=== PATIENT | male | born 1990 | race Caucasian/White ===

== ENCOUNTER 2016-04-01 18:58 | Emergency (ER) ==
[2016-04-01 19:05] VITALS: BP 134/74; TEMP 99.2; BMI 28.0
--- NOTE | 2016-04-01 19:30 | ED.PDOC ---
General ED Provider: Dr. VIRGIE GALLEGOS Chief Complaint: Tooth Problem Stated Complaint: Patient is a 25 year old male who comes to the ER with Complaints of right dental pain for 4 days. States he broke the right lower premolar and now has severe pain. The pain was not relieved with Motrin and Tylenol. States has an Apt with dentist next 2 week. Time Seen by Physician: 19:29 Mode of Arrival: Walk-In Information Source: Patient Nursing and Triage Documentation Reviewed and Agree: Yes EENT Complaint Exam - Dental/Oral Complaint/Exam Mechanism of Injury: No known trauma Onset/Duration: 4 days Symptoms Are: Still present Timing: Constant Initial Severity: Moderate Current Severity: Severe Location: Right Lower molar Character: Reports: Dull, Aching, Throbbing Aggravating: Reports: Heat, Cold, Chewing, Exertion Associated Signs and Symptoms: Reports: Swelling Related History: Denies: Similar episode Cardiac Risk Factors: Reports: None Dental/Oral Surgical History: Reports: None Tooth Findings: Present: Dental fracture Cervical Lymphadenopathy Present: No Facial Swelling Present: No Bleeding Present: No Oropharynx Findings: Absent: Clots, Active bleeding Septal Hematoma: No Foreign Body Present: No Dysphagia Present: No Drooling Present: No Asymmetrical Tonsillar Swelling Present: No Uvula Midline: No Carol-tonsillar Fluctuence: No Trismus Present: No Palatal Petechiae Present: No Scarlatinaform Rash Present: No Lesions: Absent: Lip, Gums, Tongue, Buccal Mucosa, Pharynx Exanthem: Absent: Lip, Gums, Tongue, Buccal Mucosa, Pharynx Vesicles: Absent: Lip, Gums, Tongue, Buccal Mucosa, Pharynx Teeth Picture: 1 - fractured tooth with some decay Differential Diagnoses: Dental Caries, Fractured Tooth Review of Systems - Review Of Systems Constitutional: Reports: No symptoms Eyes: Reports: No symptoms Ears, Nose, Mouth, Throat: Reports: Mouth pain Respiratory: Reports: No symptoms Cardiac: Reports: No symptoms GI: Reports: No symptoms : Reports: No symptoms Musculoskeletal: Reports: No symptoms Skin: Reports: No symptoms Neurological: Reports: No symptoms Endocrine: Reports: No symptoms Hematologic/Lymphatic: Reports: No symptoms All Other Systems: Reviewed and Negative Past Medical History - Past Medical History Previously Healthy: Yes Endocrine: Reports: None Cardiovascular: Reports: None Respiratory: Reports: None Hematological: Reports: None Gastrointestinal: Reports: None Genitourinary: Reports: Kidney stones Neuro/Psych: Reports: Anxiety, Depression Musculoskeletal: Reports: None Cancer: Reports: None Other Pertinent Past Medical History: Tachycardia - Surgical History General Surgical History: Reports: None - Family History Family History: Reports: None - Social History Smoking Status: Never smoker Hx Substance Use: No Alcohol Screening: None - Immunizations Tetanus Shot up to Date: Yes Physical Exam - Physical Exam Appearance: Ill-appearing Ill-appearing: Mild Pain Distress: Severe Eyes: CARA, EOMI, Conjunctiva clear ENT: Ears normal, Nose normal, Oropharynx normal Neck: Supple Respiratory: Airway patent, Breath sounds clear, Breath sounds equal, Respirations nonlabored Cardiovascular: RRR, Pulses normal, No rub, No murmur GI/: Soft, Nontender, No masses, Bowel sounds normal, No Organomegaly Musculoskeletal: Normal strength, ROM intact, No edema, No calf tenderness Skin: Warm, Dry, Normal color Neurological: Sensation intact Critical Care Note - Critical Care Note Total Time (mins): 0 Course - Course Vital Signs: Temp Pulse Resp BP Pulse Ox 04/01/16 19:00 99.2 F 70 20 134/74 98 Departure - Departure Time of Disposition: 20:10 Disposition: HOME SELF-CARE Discharge Problem: Toothache, Dental decay Instructions: Dental Caries (ED) Condition: Fair Pt referred to PMD for follow-up: Yes Additional Instructions: Follow up with Your dentist as scheduled. Take medications as prescribed Prescriptions: Hydrocodone/Acetaminophen [[place] 5-325 Tablet] 1 tab PO Q6HR PRN #12 tablet PRN Reason: PAIN Amoxicillin [Amoxil] 500 mg PO TID #30 capsule Allergies/Adverse Reactions: Allergies No Known Allergies Allergy (Unverified 04/01/16 19:37) Home Medications: Ambulatory Orders Amoxicillin [Amoxil] 500 mg PO TID #30 capsule 04/01/16 Hydrocodone/Acetaminophen [[place] 5-325 Tablet] 1 tab PO Q6HR PRN #12 tablet 08/11 Disposition Discussed With: Patient
[2016-04-01] MEDS ORDERED: AMOXIL PO STA (19:35)
[2016-04-01] MEDS ORDERED: DEMEROL 50 MG/ML SYRINGE IM STA (19:35)
[2016-04-01] MEDS ORDERED: PHENERGAN 25 MG/ML VIAL 25 MG in SODIUM CHLORIDE 50 ML IV STA (19:35)
[2016-04-01] MEDS ORDERED: PHENERGAN 25 MG/ML VIAL 25 MG in SODIUM CHLORIDE 50 ML IM STA (19:39)
[2016-04-01] MEDS ORDERED: PHENERGAN 25 MG/ML VIAL IM STA (19:39)
[2016-04-01] MEDS ORDERED: PHENERGAN 25 MG/ML VIAL ONE (19:40)
== END 2016-04-01 20:19 | disposition home or self-care (01) ==
LOC: ED 18:58
DX: K08.89 Other specified disorders of teeth and supporting structures (principal); K02.7 Dental root caries; S02.5XXA Fracture of tooth (traumatic), initial encounter for closed fracture
CPT/HCPCS: 96372; 99282

== ENCOUNTER 2016-09-10 20:22 | Emergency (ER) ==
[2016-09-10 20:25] VITALS: BP 128/74; TEMP 98.9
[2016-09-10] MEDS ORDERED: SODIUM CHLORIDE 1,000 ML IV STA (20:30)
[2016-09-10] MEDS ORDERED: TORADOL IVP STA (20:31)
[2016-09-10] MEDS ORDERED: ZOFRAN 4 MG/2 ML IVP STA (20:31)
[2016-09-10 20:43] LABS: BASOPHILS # (AUTO) 0.1 K/uL (0-0.2); BASOPHILS % (AUTO) 0.8 % (0.0-3.0); EOSINOPHILS # (AUTO) 0.1 K/ul (0.0-0.7); EOSINOPHILS % (AUTO) 1.2 % (0.0-7.0); HEMATOCRIT 44.5 % (42.0-52.0); HEMOGLOBIN 15.6 g/dl (14.0-18.0); IMMATURE GRANULOCYTE % (AUTO) 0.4 % (0.0-5.0); LYMPHOCYTES # (AUTO) 2.3 K/uL (0.60-3.4); LYMPHOCYTES % (AUTO) 31.3 (10.0-50.0); MEAN CORPUSCULAR HEMOGLOBIN 29.9 pg (27.0-31.0); MEAN CORPUSCULAR HGB CONC 35.1 (31.8-35.4); MEAN CORPUSCULAR VOLUME 85.4 fl (80.0-94.0); MONOCYTES # (AUTO) 0.6 K/uL (0.4-2.0); MONOCYTES % (AUTO) 7.7 (0-10); NEUTROPHILS # (AUTO) 4.3 K/ul (2.0-6.9); NEUTROPHILS % (AUTO) 58.6; PLATELET COUNT 202 10^3/uL (140-440); RED BLOOD COUNT 5.21 10^6/ul (4.70-6.10); WHITE BLOOD COUNT 7.26 K/ul (4.2-10.2)
[2016-09-10 20:51] LABS: BILIRUBIN,URINE Negative (NEGATIVE); KETONES,URINE Trace (NEGATIVE); LEUKOCYTE ESTERASE ,URINE Negative (NEGATIVE); NITRITE,URINE Negative (NEGATIVE); PH,URINE 7.5 (5-9); PROTEIN,URINE Negative (NEGATIVE); URINE, BLOOD Negative (NEGATIVE)
[2016-09-10 20:56] LABS: ADD URINE MICROSCOPIC NO
[2016-09-10 21:03] LABS: ALBUMIN/GLOBULIN RATIO 1.08; BILIRUBIN,TOTAL 0.36 mg/dL (0.00-1.20); BUN/CREATININE RATIO 11.76; CALCIUM 9.4 mg/dL (8.2-10.2); CREATININE 1.02 mg/dL (0.60-1.10); TOTAL PROTEIN 7.7 g/dL (6.4-8.2)
--- NOTE | 2016-09-10 21:59 | DI ---
EXAM: Chest two views HISTORY: Nausea COMPARISON: 01/13/2011 TECHNIQUE: Two views of the chest were performed FINDINGS: The lungs are clear. There is no pleural effusion or pneumothorax. The heart is normal in size. The mediastinal contour is normal. There are no acute abnormalities of the bones. IMPRESSION: No acute cardiopulmonary process.
--- NOTE | 2016-09-10 22:17 | CT ---
EXAM: CT abdomen pelvis with and without contrast HISTORY: Abdominal pain, unchanged by COMPARISON: 02/24/2014 TECHNIQUE: CT abdomen pelvis performed with and without intravenous contrast. Coronal and sagittal reformatted images obtained. FINDINGS: Lung bases clear. No free air. No acute abnormalities of the bones. Heart normal in si ze. Liver appears normal. Gallbladder appears normal. Pancreas appears normal. Spleen appears no rmal. Adrenals appear normal. Kidneys appear normal without hydronephrosis or nephrolithiasis. Bl adder appears normal. Prostate top normal in size. Aorta normal in caliber. Increased number of n ormal and top normal mesenteric lymph nodes appear unchanged and may relate to mild chronic mesenter ic adenitis or panniculitis. No ascites. . Stomach appears normal. No dilated loops small bowel. Appendix appears normal. Colon unremarkable. No inflammatory stranding identified in the abdomen or pelvis. IMPRESSION: 1. No acute abnormality identified in the abdomen or pelvis. 2. Increase number of normal and top normal mesenteric lymph nodes, appear unchanged and may relate to chronic mesenteric adenitis or panniculitis.
--- NOTE | 2016-09-10 22:37 | ED.PDOC ---
General ED Provider: Dr. KAYLEIGH SUMMERS-ER Chief Complaint: Bite Stated Complaint: i think i have lyme disease --i had a tick bite and now its red and every joint hurts Time Seen by Physician: 20:25 Mode of Arrival: Walk-In Information Source: Patient Exam Limitations: No limitations Nursing and Triage Documentation Reviewed and Agree: Yes Skin Complaint Exam - Skin/Soft Tissue Complaint/Exam Onset/Duration: 3 days Symptoms Are: Still present Timing: Constant Initial Severity: Mild Current Severity: Mild Location: right arm Character: Reports: Redness, Swelling, Raised Aggravating: Reports: None Alleviating: Reports: None Associated Signs and Symptoms: Reports: Tenderness. Denies: Fever, Chills, Itching, Drainage, Bruising, Red streaks, Joint swelling Related History: Reports: Insect bite/sting Related Surgical History: Reports: None Recent Exposure to Others w/Similar Symptoms: No Skin Findings: Present: Erythema Joint Tenderness Present: No Differential Diagnoses: Cellulitis, Tick-Borne Illness Review of Systems - Review Of Systems Constitutional: Reports: No symptoms Eyes: Reports: No symptoms Ears, Nose, Mouth, Throat: Reports: No symptoms Respiratory: Reports: No symptoms Cardiac: Reports: No symptoms GI: Reports: Nausea : Reports: No symptoms Musculoskeletal: Reports: No symptoms Skin: Reports: No symptoms Neurological: Reports: No symptoms Endocrine: Reports: No symptoms Hematologic/Lymphatic: Reports: No symptoms All Other Systems: Reviewed and Negative Past Medical History - Past Medical History Previously Healthy: Yes Endocrine: Reports: None Cardiovascular: Reports: None Respiratory: Reports: None Hematological: Reports: None Gastrointestinal: Reports: None Genitourinary: Reports: Kidney stones Neuro/Psych: Reports: Anxiety, Depression Musculoskeletal: Reports: None Cancer: Reports: None Other Pertinent Past Medical History: Tachycardia - Surgical History General Surgical History: Reports: None - Family History Family History: Reports: None - Social History Smoking Status: Never smoker Hx Substance Use: No Alcohol Screening: None Lives: With family Physical Exam - Physical Exam Appearance: Well-appearing, No pain distress, Well-nourished Pain Distress: Mild Eyes: CARA, EOMI, Conjunctiva clear ENT: Ears normal, Nose normal, Oropharynx normal Neck: Supple Respiratory: Airway patent, Breath sounds clear, Breath sounds equal, Respirations nonlabored Cardiovascular: RRR, Pulses normal, No rub, No murmur GI/: Soft, Nontender, No masses, Bowel sounds normal, No Organomegaly Musculoskeletal: Normal strength, ROM intact, No edema, No calf tenderness Skin: Warm Neurological: Sensation intact, Motor intact, Reflexes intact, Cranial nerves intact, Alert, Oriented Psychiatric: Affect appropriate, Mood appropriate, Anxious Interpretation - Radiology Interpretation Radiology Interpretation By: Radiologist Radiology Results: Negative Exam Interpreted: CT Scan Critical Care Note - Critical Care Note Total Time (mins): 0 Course - Course Hematology/Chemistry: 09/10/16 20:35 09/10/16 20:35 Orders, Labs, Meds: Lab Review 09/10/16 09/10/16 20:30 20:35 WBC 7.26 RBC 5.21 Hgb 15.6 Hct 44.5 MCV 85.4 MCH 29.9 MCHC 35.1 RDW Coeff of [place] 13.1 Plt Count 202 Immature Gran % (Auto) 0.4 Neut % (Auto) 58.6 Lymph % (Auto) 31.3 [place] % (Auto) 7.7 Eos % (Auto) 1.2 Baso % (Auto) 0.8 Immature Gran # (Auto) 0.0 Neut # 4.3 Lymph # 2.3 [place] # 0.6 Eos # 0.1 Baso # 0.1 D-Dimer (Manual) 148.35 Sodium 141 Potassium 4.0 Chloride 107 Carbon Dioxide 24 Anion Gap 14.0 BUN 12 Creatinine 1.02 Estimated GFR (MDRD) 90.00 BUN/Creatinine Ratio 11.76 Glucose 78 Calcium 9.4 Total Bilirubin 0.36 AST 23 ALT 35 Alkaline Phosphatase 86 Total Protein 7.7 Albumin 4.0 Globulin 3.7 Albumin/Globulin Ratio 1.08 Amylase 70 Lipase 23 Urine Color Yellow Urine Clarity Clear Urine pH 7.5 Ur Specific [place] 1.020 Urine Protein Negative Urine Glucose (UA) Negative Urine Ketones Trace Urine Blood Negative Urine Nitrite Negative Urine Bilirubin Negative Urine Urobilinogen 0.2 Ur Leukocyte Esterase Negative Orders Category Date Time Status EKG-(ED ONLY) Stat CARDIO 09/10/16 20:57 Completed NPO REMINDER: IMAGING ONCE CARE 09/10/16 20:30 Completed IV [ED IV/MEDIPORT/POWERPORT] .ONCE EMERGENCY 09/10/16 20:30 Active AMYLASE Stat LAB 09/10/16 20:35 Completed CBC W/ AUTO DIFF Stat LAB 09/10/16 20:35 Completed COMPREHENSIVE METABOLIC PANEL Stat LAB 09/10/16 20:35 Completed D-DIMER Stat LAB 09/10/16 20:30 Completed EHRLICHIA DNA, PCR Stat LAB 09/10/16 20:35 Received LIPASE Stat LAB 09/10/16 20:35 Completed LYME, WESTERN BLOT, SERUM Stat LAB 09/10/16 Ordered CLARISSA MTN SPOTTED FEVER,IgG Stat LAB 09/10/16 20:35 Received CLARISSA MTN SPOTTED FEVER,IgM Stat LAB 09/10/16 20:35 Received URINALYSIS C & S IF INDICATED Stat LAB 09/10/16 20:35 Completed 0.9 % Sodium Chloride [Saline Flush] MEDS 09/10/16 20:30 Ordered 1 syr IVF PRN PRN Ketorolac Tromethamine [Toradol] MEDS 09/10/16 20:31 Discontinued 30 mg IVP ONCE STA Ondansetron HCl/Pf [Zofran 4 mg/2 ml] MEDS 09/10/16 20:31 Discontinued 4 mg IVP ONCE STA Sodium Chloride 0.9% [Sodium Chloride] 1,000 ml MEDS 09/10/16 20:30 Active IV 100 mls/hr CHEST, 2 VIEWS PA & LAT Stat RADS 09/10/16 20:[address] ABDOMEN/PELVIS W/WO CONTRAS Stat RADS 09/10/16 20:30 Completed Medications Generic Name Dose Route Start Last Admin Trade Name Freq PRN Reason Stop Dose Admin Sodium Chloride 1,000 mls @ 100 mls/hr 09/10/16 20:30 09/10/16 20:53 Sodium Chloride IV 09/11/16 06:29 100 mls/hr .Q10H STA Administration Sodium Chloride 1 syr 09/10/16 20:30 09/10/16 20:53 Saline Flush IVF 1 syr PRN PRN Administration To flush IV Discontinued Medications Generic Name Dose Route Start Last Admin Trade Name Freq PRN Reason Stop Dose Admin Ketorolac Tromethamine 30 mg 09/10/16 20:31 09/10/16 20:53 Toradol IVP 09/10/16 20:32 Not Given ONCE STA Ondansetron HCl 4 mg 09/10/16 20:31 09/10/16 20:51 Zofran 4 Mg/2 Ml IVP 09/10/16 20:32 4 mg ONCE STA Administration Vital Signs: Temp Pulse Resp BP Pulse Ox 09/10/16 20:23 98.9 F 85 14 128/74 98 Departure - Departure Time of Disposition: 22:37 Disposition: HOME SELF-CARE Discharge Problem: Tick bite Qualifiers: Encounter type: initial encounter Qualifier Code: (W57.XXXA) Bitten or stung by nonvenomous insect and other nonvenomous arthropods, initial encounter Tick bite Qualifiers: Encounter type: initial encounter Qualifier Code: (W57.XXXA) Bitten or stung by nonvenomous insect and other nonvenomous arthropods, initial encounter Instructions: Tick Bite (ED) Condition: Good Pt referred to PMD for follow-up: Yes Additional Instructions: doxycycline 100mg bid x 7days --zofran 4mg q 4hrs prn #4--f/u wtih pcp next week for tick bite lab results Allergies/Adverse Reactions: Allergies No Known Allergies Allergy (Verified 09/10/16 20:25) Home Medications: Ambulatory Orders 1 [No Reported Medications] 09/10/16
[2016-09-10] MEDS ORDERED: DOXYCYCLINE HYCLATE PO STA (22:39)
[2016-09-15 19:09] LABS: IGG P18 AB Absent (.); IGG P23 AB Absent (.); IGG P28 AB Absent (.); IGG P30 AB Present (.); IGG P39 AB Absent (.); IGG P41 AB Present (.); IGG P45 AB Absent (.); IGG P58 AB Present (.); IGG P66 AB Absent (.); IGG P93 AB Absent (.); IGM P39 AB Absent (.); IGM P41 AB Present (.)
[2016-09-16 16:25] LABS: LYME IGG WB INTERP Negative (.); LYME IGM WB INTERP Negative (.)
== END 2016-09-10 22:51 | disposition home or self-care (01) ==
LOC: ED 20:22
DX: S40.861A Insect bite (nonvenomous) of right upper arm, initial encounter (principal); L53.9 Erythematous condition, unspecified; W57.XXXA Bitten or stung by nonvenomous insect and other nonvenomous arthropods, initial encounter
CPT/HCPCS: 36415; 80053; 81001; 82150; 83690; 85025; 85379; 86617; 86757; 87798; 93005; 93010; 96361; 96374; 99283

== ENCOUNTER 2016-09-11 21:45 | Emergency (ER) ==
[2016-09-11 22:00] VITALS: BP 150/83; TEMP 98.8; BMI 30.2
[2016-09-11] MEDS ORDERED: TORADOL IM STA (22:28)
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
== END 2016-09-11 23:32 | disposition home or self-care (01) ==
LOC: ED 21:45
DX: T22.112A Burn of first degree of left forearm, initial encounter (principal); R51 Headache; M54.2 Cervicalgia; M54.5 Low back pain; R07.89 Other chest pain; V40.5XXA Car driver injured in collision with pedestrian or animal in traffic accident, initial encounter; W20.8XXA Other cause of strike by thrown, projected or falling object, initial encounter; F17.210 Nicotine dependence, cigarettes, uncomplicated
CPT/HCPCS: 99283

== ENCOUNTER 2016-10-30 17:59 | Emergency (ER) ==
[2016-10-30 18:05] VITALS: BP 123/79; TEMP 98.6; BMI 30.4
[2016-10-30] MEDS: LIDOCAINE 1 % AMP 5 ML (SUTURES) SUBCUT STA ×2 (18:07→18:21)
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
[2016-10-30] MEDS: NORCO 10-325 PO STA (18:36)
[2016-10-30] MEDS: BOOSTRIX IM ONE (18:40)
== END 2016-10-30 19:01 | disposition home or self-care (01) ==
LOC: ED 17:59
DX: S61.213A Laceration without foreign body of left middle finger without damage to nail, initial encounter (principal); S69.92XA Unspecified injury of left wrist, hand and finger(s), initial encounter; W23.0XXA Caught, crushed, jammed, or pinched between moving objects, initial encounter; F17.210 Nicotine dependence, cigarettes, uncomplicated
CPT/HCPCS: 90471; 96372; 99283

== ENCOUNTER 2017-01-02 20:00 | Emergency (ER) ==
[2017-01-02 20:08] VITALS: BP 125/75; TEMP 98.1; BMI 32.2
[2017-01-02 20:30] LABS: BASOPHILS # (AUTO) 0.1 K/uL (0-0.2); BASOPHILS % (AUTO) 0.7 % (0.0-3.0); EOSINOPHILS # (AUTO) 0.1 K/ul (0.0-0.7); EOSINOPHILS % (AUTO) 1.3 % (0.0-7.0); HEMATOCRIT 45.9 % (42.0-52.0); IMMATURE GRANULOCYTE % (AUTO) 0.3 % (0.0-5.0); LYMPHOCYTES # (AUTO) 2.2 K/uL (0.60-3.4); LYMPHOCYTES % (AUTO) 31.8 (10.0-50.0); MEAN CORPUSCULAR HGB CONC 34.9 (31.8-35.4); MONOCYTES # (AUTO) 0.7 K/uL (0.4-2.0); NEUTROPHILS # (AUTO) 3.9 K/ul (2.0-6.9); NEUTROPHILS % (AUTO) 55.9; PLATELET COUNT 214 10^3/uL (140-440); RED BLOOD COUNT 5.34 10^6/ul (4.70-6.10); WHITE BLOOD COUNT 6.99 K/ul (4.2-10.2)
[2017-01-02 20:34] LABS: BILIRUBIN,URINE Negative (NEGATIVE); KETONES,URINE Negative (NEGATIVE); LEUKOCYTE ESTERASE ,URINE Negative (NEGATIVE); NITRITE,URINE Negative (NEGATIVE); PROTEIN,URINE Negative (NEGATIVE); URINE, BLOOD Negative (NEGATIVE)
[2017-01-02 20:35] LABS: ADD URINE MICROSCOPIC NO
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
[2017-01-02] MEDS ORDERED: TYLENOL PO STA (20:48)
[2017-01-02 20:51] LABS: ALBUMIN/GLOBULIN RATIO 1.03; ANION GAP 13.1; BILIRUBIN,TOTAL 0.5 mg/dL (0.00-1.20); BUN/CREATININE RATIO 12.34; CALCIUM 9.9 mg/dL (8.2-10.2); CREATININE 0.81 mg/dL (0.60-1.10); POTASSIUM 4.1 mmol/L (3.5-5.1); TOTAL PROTEIN 7.9 g/dL (6.4-8.2)
--- NOTE | 2017-01-02 20:56 | CT ---
EXAM: CT abdomen pelvis without intravenous contrast 01/02/2017. Sagittal and coronal reformatted i mages obtained HISTORY: Flank pain. Brain with urination COMPARISON: 09/10/2016 FINDINGS: The liver, gallbladder, adrenal glands and kidneys show no acute abnormality. There is no urinary obstruction. The spleen and pancreas show no acute abnormality. There is no evidence of bowel obstruction. Normal appendix. Unremarkable decompressed urinary bladd er. There is no free air or free fluid. There are multiple mildly enlarged mesenteric lymph nodes suggestive of mesenteric adenitis. IMPRESSION: 1. No urinary or bowel obstruction and normal appendix. 2. Multiple enlarged mesenteric lymph nodes suggestive of mesenteric adenitis. 3. Technically limited examination due to the lack of intravenous contrast.
[2017-01-02] MEDS ORDERED: LIDOCAINE HCL 1% SDV SUBCUT STA (20:58)
[2017-01-02] MEDS ORDERED: ROCEPHIN IM STA (20:58)
== END 2017-01-02 21:35 | disposition home or self-care (01) ==
LOC: ED 20:00
DX: N34.2 Other urethritis (principal); F17.210 Nicotine dependence, cigarettes, uncomplicated
CPT/HCPCS: 36415; 51798; 80053; 81001; 85025; 96372; 99283

== ENCOUNTER 2018-01-10 17:01 | Emergency (ER) | payer OTHER ==
[2018-01-10 17:06] VITALS: TEMP 97; BMI 22.4
[2018-01-10 18:12] VITALS: BP 122/76
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
--- NOTE | 2018-01-11 07:31 | DI ---
EXAM: Chest one view, frontal view only. HISTORY: Initial presentation for left-sided chest trauma. COMPARISON: 09/10/2016. FINDINGS: The heart size is normal. There is no pulmonary vascular congestion. The lungs are clear . No pleural effusion or pneumothorax is seen. No acute osseous abnormality is identified. Since t he prior study, there has been no significant interval change. IMPRESSION: No acute cardiopulmonary process.
== END 2018-01-10 20:40 | disposition home or self-care (01) ==
LOC: ED 17:01
DX: F41.9 Anxiety disorder, unspecified (principal); F15.10 Other stimulant abuse, uncomplicated; F12.10 Cannabis abuse, uncomplicated; T50.905A Adverse effect of unspecified drugs, medicaments and biological substances, initial encounter; R07.9 Chest pain, unspecified; R41.82 Altered mental status, unspecified; F17.210 Nicotine dependence, cigarettes, uncomplicated
CPT/HCPCS: 36415; 80053; 80306; 81001; 85025; 93005; 93010; 96360; 96361; 99283

== ENCOUNTER 2018-04-01 21:58 | Emergency (ER) ==
[2018-04-01 22:05] VITALS: BP 124/75; TEMP 98.7; BMI 23.6
--- NOTE | 2018-04-01 22:39 | CT ---
Exam: CT sinuses without contrast History: Cough Technique: [address] sinuses with multiplanar reformations FINDINGS: The paranasal sinuses are clear. The orbits appear normal. The mastoid air cells and mid dle ears are clear. The nasal airway is clear without significant mucosal hypertrophy. There is a o r large, (1.7 cm) cyst associated with the left posterior molar of the maxilla. Impression: 1. No sinus disease 2. Prominent apical cyst associated with the posterior molar of the left maxilla.
--- NOTE | 2018-04-01 22:39 | CT ---
EXAM: CT of the chest without contrast. HISTORY: Productive cough. PROCEDURE: Contiguous axial CT images of the chest without contrast with coronal and sagittal reform ats. FINDINGS: The heart, mediastinum and thoracic aorta are normal in appearance. No infiltrate or conso lidation. The bones and soft tissues are unremarkable. There are no acute findings in the upper abd omen. Impression: Negative CT of the chest.
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
== END 2018-04-01 23:45 | disposition home or self-care (01) ==
LOC: ED 21:58
DX: R19.7 Diarrhea, unspecified (principal); F17.210 Nicotine dependence, cigarettes, uncomplicated
CPT/HCPCS: 36415; 80053; 81001; 82150; 83690; 85007; 85025; 87502; 87651; 87801; 99283

== ENCOUNTER 2018-08-24 23:13 | Emergency (ER) ==
[2018-08-24 23:16] VITALS: BP 128/74; TEMP 97.8; BMI 22.5
[2018-08-24] MEDS ORDERED: PYRIDIUM PO STA (23:45)
[2018-08-24] MEDS ORDERED: CIPRO PO STA (23:46)
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
== END 2018-08-25 00:05 | disposition home or self-care (01) ==
LOC: ED 23:13
DX: N45.2 Orchitis (principal); N41.0 Acute prostatitis; F17.210 Nicotine dependence, cigarettes, uncomplicated
CPT/HCPCS: 36415; 81001; 87800; 99282